=== PATIENT | female | born 1960 | race Caucasian/White ===

== ENCOUNTER → 2017-10-31 | Day surgery (SDC) | payer BC ==
[2017-10-25 17:12] LABS: BASOPHILS % 0.9 % (0.0-1.0); EOSINOPHILS # (AUTO) 0.1 (0.0-0.4); HEMATOCRIT 37.8 % (34.2-44.1); HEMOGLOBIN 12.5 g/dL (12.0-16.0); LYMPHOCYTES # (AUTO) 1.5 (1.0-3.2); LYMPHOCYTES % 43.1 % (18.0-39.1); MEAN CORPUSCULAR HEMOGLOBIN 29.2 pg (28-32); MEAN CORPUSCULAR HGB CONC 33.1 g/dL (31-35); MEAN CORPUSCULAR VOLUME 88.3 fL (81-99); MONOCYTES # (AUTO) 0.2 (0.2-0.8); MONOCYTES % 5.5 % (4.4-11.3); NEUTROPHILS # (AUTO) 1.7 (2.1-6.9); NEUTROPHILS % 48.5 % (38.7-80.0); PLATELET COUNT 227 x10e3/uL (140-360); RED BLOOD COUNT 4.28 x10e6/uL (3.6-5.1); RED CELL DISTRIBUTION WIDTH 17.4 % (11.7-14.4)
[~2017-10-31] MED LIST: ADDERALL 30 MG30 MG PO; ANASTROZOLE1 MG PO; ESCITALOPRAM OX20 MG PO; FENTANYL CITRATE/PF 100MCG/2 ML INJ ONE; GABAPENTIN300 MG PO; HYDROCHLOROTH12.5 MG PO; HYDROCHLOROTHIA25 MG PO; IRON PO; LIDOCAINE HCL 2% LOCAL INJ 5 ML SDV VIAL INJ ONE; MIDAZOLAM HCL 2 MG/2 ML VIAL ONE; MULTIVITAMINS1 EAC7 PO; PANTOPRAZOLE SO40 MG PO; PROBIOTIC & AC1 EACH PO; PROPOFOL IV EMULSION 10 MG/ML 50 ML VIAL ONE; PROZAC PO; SUCRALFATE1 GM PO; TRAZODONE HCL50 MG PO; VITAMIN D1000 UNI1 PO
--- OUTSIDE RECORDS SUMMARY | 2017-10-31 08:37 | XMS REPORT ---
Author Author [facility] Address Unknown Phone Unavailable Care Team Providers Care Elevator Erector Name Role Phone MUKUND MENDEZ Unavailable Unavailable Problems This patient has no known problems. Allergies, Adverse Reactions, Alerts This patient has no known allergies or adverse reactions. Medications This patient has no known medications. Results Test Description Test Time Test Comments Text Results Atomic Results Result Comments ANKLE 3+ VIEWS LEFT [facility] [address], [place] [address] Patient Name: KIRSTEN MORATAYA MR #: [id number] : 1960 Age/Sex: 57/F Req #: [id number] Adm Physician: Ordered by: MUKUND MENDEZ DO Report # : [id number] Location: [facility] Room/Bed: Procedure: [id number] DX/ANKLE 3+ VIEWS LEFT Exam Date: 07/01/17 Exam Time: 1730 REPORT STATUS: Signed ANKLE 3+ VIEWS LEFT - 3 views HISTORY: Pain. COMPARISON: None available. FINDINGS: Bones: No acute displaced fracture. Mild patchy sclerosis of the distal metadiaphysis of the fibula is nonspecific. Osseous alignment is within normal limits. Joints: The joint spaces are well-maintained. The ankle mortise is maintained. Soft tissues: Marked lateral malleolar soft tissue swelling. IMPRESSION: Marked lateral malleolar soft tissue swelling. No acute displaced fracture. If clinical concern remains, particularly for ligamentous injury, consider MRI of ankle without contrast for further evaluation. Signed by: Dr. Henrietta Mario M.D. on 2016 6:01 PM Dictated By: CAROLINE MARIO MD, MD 00 Transcribed By: BIRD on 07/01/171800 COPY TO: MUKUND MENDEZ DO
--- NOTE | 2017-10-31 12:04 | Operative Report ---
DATE OF PROCEDURE: October 31, 2017 100% QA PROCEDURE PERFORMED: Esophagogastroduodenoscopy with biopsies. INDICATIONS FOR PROCEDURE: History of giant marginal ulcer. Patient is status post Janis-en-Y. MEDICATION: Patient was done under MAC. Please see anesthesiologist's note. DESCRIPTION OF PROCEDURE: With the patient in lateral decubitus position, flexible fiberoptic Olympus gastroscope was introduced into the esophagus under direct visualization without any difficulty. The esophagus appeared to be within normal limits. The scope was then advanced with ease into the stomach and Janis-en-Y anastomosis was noted approximately 5 cm distal to the GE junction. The previously described giant marginal ulcer has almost healed with some residual friability and some nodularity at the area of the ulcer and biopsies were obtained. Anastomosis was intact. Enteric loop was patent. The scope was then retroflexed, and the fundus and the cardia appeared to be within normal limits. The scope was then straightened out and was withdrawn. Patient tolerated procedure well. IMPRESSION: 1. Normal esophagus. 2. Status post Janis-en-Y anastomosis, intact. 3. Previously described giant marginal ulcer, almost healed. PLAN: Follow up histology. Continue Protonix 40 mg 1 p.o. a.c. b.i.d. and Carafate 1 gram p.o. a.c. t.i.d. and at bedtime. Job#: [id number] [place]
== END | disposition home or self-care (01) ==
LOC: OR 08:34
PROVIDERS: ATTEND Internal Medicine Gastroenterology
DX: K25.9 Gastric ulcer, unspecified as acute or chronic, without hemorrhage or perforation (principal); Z98.84 Bariatric surgery status; I10 Essential (primary) hypertension; R42 Dizziness and giddiness; R56.9 Unspecified convulsions; K20.8 Other esophagitis; Z01.812 Encounter for preprocedural laboratory examination; Z85.3 Personal history of malignant neoplasm of breast; Z85.41 Personal history of malignant neoplasm of cervix uteri; Z87.891 Personal history of nicotine dependence; Z80.0 Family history of malignant neoplasm of digestive organs
CPT/HCPCS: 36415; 43239; 85025; J2001; J2250

== ENCOUNTER → 2024-04-06 | Day surgery (SDC) | payer BC, MEDICARE ==
[~2024-04-06] MED LIST changes: +ADDERALL 20 MG20 MG PO; +GLUCAGON FOR INJ 1 MG VIAL ONE; +HYOSCYAMINE SULFATE 0.5 MG/ML INJ ONE; -LIDOCAINE HCL 2% LOCAL INJ 5 ML SDV VIAL INJ ONE; +METOCLOPRAMIDE HCL 10 MG/2ML VIAL ONE; -MIDAZOLAM HCL 2 MG/2 ML VIAL ONE; +MONTELUKAST SOD10 MG PO; +ONDANSETRON HCL INJ 2MG/ML 2ML 2 MG/ML VIAL ONE; -PROPOFOL IV EMULSION 10 MG/ML 50 ML VIAL ONE; +PROPOFOL IV EMULSION 50 ML IV ONE
[2024-04-06] MEDS: LACTATED RINGER'S 1,000 ML ONE (15:27)
[2024-04-06 17:50] VITALS: BP 120/76; PULSE 99; RESP 16; O2SAT 94
[2024-04-06 18:26] LABS: WBC,FECAL (FECAL LACTOFERRIN) NEGATIVE (NEGATIVE)
== END | disposition home or self-care (01) ==
LOC: OR 14:35
PROVIDERS: ATTEND Internal Medicine Gastroenterology
DX: D12.3 Benign neoplasm of transverse colon (principal); K20.90 Esophagitis, unspecified without bleeding; K52.9 Noninfective gastroenteritis and colitis, unspecified; K57.30 Diverticulosis of large intestine without perforation or abscess without bleeding; K21.9 Gastro-esophageal reflux disease without esophagitis; K62.89 Other specified diseases of anus and rectum; K59.09 Other constipation; K64.8 Other hemorrhoids; Z98.84 Bariatric surgery status; Z71.3 Dietary counseling and surveillance; I10 Essential (primary) hypertension; Z71.89 Other specified counseling; F90.9 Attention-deficit hyperactivity disorder, unspecified type; Z91.040 Latex allergy status; Z01.810 Encounter for preprocedural cardiovascular examination; Z79.899 Other long term (current) drug therapy; Z85.3 Personal history of malignant neoplasm of breast; Z85.41 Personal history of malignant neoplasm of cervix uteri; Z80.0 Family history of malignant neoplasm of digestive organs
CPT/HCPCS: 43239; 43450; 45380; 45385; 83630; 83993; 87045; 87177; 87324; 87328; 87449; 93005; J1610; J1980; J2405; J2470; J2704; J2765; J3010; J7121; 45378